=== PATIENT | female | born 1960 | race Caucasian/White ===

== ENCOUNTER 2017-11-06 10:26 | Emergency (ER) | payer OTHER ==
[2017-11-06] MEDS ORDERED: Albuterol 2.5 MG/3 ML NEB.SOL* (0.083%) INH ONE (12:51)
[2017-11-06] MEDS ORDERED: Ipratropium 0.5MG/2.5ML NEB* 0.5 MG/2.5 ML NEB.SOLN INH ONE (12:51)
--- NOTE | 2017-11-06 12:57 | UC ---
Respiratory Complaint HPI - HPI Summary HPI Summary: 57 yo female with 6 day hx of f/c, cough, wheezing, myalgias and malaise no n/v/d no nasal symptoms hx asthma/bronchitis and pneumonia - History of Current Complaint Chief Complaint: UCRespiratory Stated Complaint: COUGH,WHEEZING 6 DAYS Time Seen by Provider: 11/06/17 12:43 Hx Obtained From: Patient Hx Last Menstrual Period: 2011 Onset/Duration: Gradual Onset, Lasting Days Timing: Constant Severity Initially: Moderate Severity Currently: Moderate Pain Intensity: 4 Pain Scale Used: 0-10 Numeric Character: Cough: Productive Aggravating Factors: Nothing Alleviating Factors: Bronchodilator Associated Signs And Symptoms: Positive: Dyspnea, Fever, Chills, Wheezing - Allergies/Home Medications Allergies/Adverse Reactions: Allergies Allergy/AdvReac Type Severity Reaction Status Date / Time MS Doxycycline [Doxycycline] Allergy Intermediate rash, Verified 03/12/15 11:12 vomiting MS Phenazopyridine Allergy Intermediate GI Upset Verified 03/12/15 11:12 [From Pyridium] MS Sulfamethoxazole Allergy Intermediate kwok Verified 03/12/15 11:12 w/Trimethoprim inside of [From Bactrim] mouth MS Tetracycline Allergy Intermediate rash, Verified 03/12/15 11:12 [Tetracycline] vomiting MS Nitrofurantoin Allergy Unknown Unknown Verified 03/12/15 11:12 [From Macrobid] Reaction Details MS Amoxicillin Allergy Diarrhea Verified 03/12/15 11:13 [From Augmentin] MS Clavulanic Acid Allergy Diarrhea Verified 03/12/15 11:13 [From Augmentin] Home Medications: Home Medications Letrozole 11/06/17 [History] PMH/Surg Hx/FS Hx/Imm Hx Previously Healthy: Yes Endocrine History: Hypothyroidism Respiratory History: Asthma, Bronchitis, Pneumonia Psychological History: Depression - Surgical History Surgical History: Yes Surgery Procedure, Year, and Place: lumpectomy- 10 lymph nodes also removed- 2011. bowel resection - Family History Known Family History: Positive: Hypertension - Social History Alcohol Use: Rare Substance Use Type: None Smoking Status (MU): Never Smoked Tobacco - Immunization History Most Recent Influenza Vaccination: Fall 2013 Review of Systems Constitutional: Fever, Chills, Fatigue Skin: Negative Eyes: Negative ENT: Negative Respiratory: Cough Cardiovascular: Chest Pain Gastrointestinal: Negative Genitourinary: Negative Motor: Negative Neurovascular: Negative Musculoskeletal: Negative Neurological: Negative Psychological: Negative Is Patient Immunocompromised?: No All Other Systems Reviewed And Are Negative: Yes Physical Exam Triage Information Reviewed: Yes Appearance: Well-Appearing, No Pain Distress, Well-Nourished Vital Signs: Initial Vital Signs Temp 99.2 F 11/06/17 10:43 Pulse 79 11/06/17 10:43 Resp 18 11/06/17 10:43 BP 115/87 11/06/17 10:43 Pulse Ox 97 11/06/17 10:43 Vital Signs Reviewed: Yes Eyes: Positive: Conjunctiva Clear ENT: Positive: Hearing grossly normal, Pharynx normal, Uvula midline. Negative : Nasal congestion, Nasal drainage, Trismus, Muffled voice, Hoarse voice Neck: Positive: Supple, Nontender, No Lymphadenopathy Respiratory: Positive: No respiratory distress, No accessory muscle use, Wheezing Cardiovascular: Positive: RRR, No Murmur Musculoskeletal: Positive: ROM Intact, No Edema Neurological: Positive: Alert Skin Exam: Normal UC Diagnostic Evaluation - Laboratory O2 Sat by Pulse Oximetry: 97 - cora/not hypoxic - Radiology Xray Interpretation: Positive (See Comments) - left lingular infiltrate Radiology Interpretation Completed By: Radiologist Re-Evaluation - Re-Evaluation First Eval Re-Evaluation Time: 13:20 Change: Improved - lungs clear/subjectively improved/no CP Respiratory Course/Dx - Course Course Of Treatment: advised of radiologist recommendation to have chest re xrayed to assure resolution - Differential Dx/Diagnosis Provider Diagnoses: pneumonia. bronchospasm Discharge - Discharge Plan Condition: Stable Disposition: HOME Prescriptions: Albuterol 2.5MG/3ML (0.083%)* [Ventolin 2.5 MG/3 ML NEB.QUINCY*] 2.5 mg INH QID PRN #1 neb.quincy PRN Reason: Wheezing Levofloxacin TAB* [Levaquin TAB*] 500 mg PO DAILY #7 tab predniSONE [Deltasone] 40 mg PO DAILY #10 tab Patient Education Materials: Bronchospasm (ED), Pneumonia (ED) Forms: *Work Release Referrals: Dinorah Gustafson MD [Primary Care Provider] - 2 Weeks (Recheck in 2-3 weeks. The radiologist has suggested re xraying you to make sure this has resolved after treatment) Additional Instructions: rest fluids neb or puffer upto 4 x day as needed for wheezing recheck with your MD early next week if not markedly improved
--- NOTE | 2017-11-06 13:16 | RAD ---
HISTORY: Cough, fever, wheezing COMPARISONS: None VIEWS: 4: Frontal dual-energy and lateral views of the chest. FINDINGS: CARDIOMEDIASTINAL SILHOUETTE: The cardiomediastinal silhouette is normal. NONA: The nona are normal. PLEURA: The costophrenic angles are sharp. No pleural abnormalities are noted. LUNG PARENCHYMA: There is patchy alveolar opacification of the lingula. ABDOMEN: The upper abdomen is clear. There is no subphrenic gas. BONES AND SOFT TISSUES: No bone or soft tissue abnormalities are noted. The patient is status post bilateral breast augmentation. OTHER: None. IMPRESSION: PATCHY ATELECTASIS VERSUS CONSOLIDATION OF THE LINGULA. RECOMMEND FOLLOW-UP UNTIL RESOLUTION TO EXCLUDE UNDERLYING PULMONARY PARENCHYMAL PATHOLOGY.
[2017-11-06 13:37] VITALS: BP 120/72
== END 2017-11-06 13:37 | disposition home or self-care (01) ==
LOC: UCCORT 10:26
DX: J18.9 Pneumonia, unspecified organism (principal); J98.01 Acute bronchospasm
CPT/HCPCS: 71046; 99212; G0463; J7644

== ENCOUNTER 2018-01-09 16:37 | Emergency (ER) | payer OTHER ==
[2018-01-09 18:18] VITALS: BP 144/101
--- NOTE | 2018-01-09 18:53 | UC ---
UC General HPI - HPI Summary HPI Summary: pt is c/o pressure and burning in her vaginal area for 2 days. no frequency, urgency or burning with urination. no fever or vaginal d/c. no risk / concern for std. is on an estrogen alistair due to breast CA. she has tried otc lubricants with no relief. - History of Current Complaint Chief Complaint: UCGU Stated Complaint: URINARY Time Seen by Provider: 01/09/18 18:08 Hx Obtained From: Patient Hx Last Menstrual Period: 2011 Timing: Constant Pain Intensity: 6 Aggravating: nothing Alleviating: nothing Associated Signs & Symptoms: Negative: Abdominal Pain, Dysuria, Fever - Allergy/Home Medications Allergies/Adverse Reactions: Allergies Allergy/AdvReac Type Severity Reaction Status Date / Time amoxicillin [From Augmentin] Allergy Diarrhea Verified 01/09/18 18:10 clavulanic acid Allergy Diarrhea Verified 01/09/18 18:10 [From Augmentin] doxycycline Allergy Rash, Verified 01/09/18 18:14 vomiting nitrofurantoin Allergy Rash Verified 01/09/18 18:24 nortriptyline Allergy Palpitation Verified 01/09/18 18:24 s phenazopyridine Allergy GI Upset Verified 01/09/18 18:08 [From Pyridium] sulfamethoxazole Allergy See Comment Verified 01/09/18 18:24 [From Bactrim] tetracycline Allergy Rash,vomiti Verified 01/09/18 18:14 ng trimethoprim [From Bactrim] Allergy See Comment Verified 01/09/18 18:24 Home Medications: Home Medications Fluticasone-Salmeterol 250-50* [Advair Diskus 250-50*] 1 puff INH BID 01/09/18 [ History Confirmed 01/09/18] Omeprazole/Sodium Bicarbonate [Omeprazole-Bicarb 40-1,100 Cap] 1 each PO DAILY 01/09/18 [History Confirmed 01/09/18] Trazodone HCl 50 mg PO DAILY 01/09/18 [History Confirmed 01/09/18] PMH/Surg Hx/FS Hx/Imm Hx - Additional Past Medical History Additional PMH: breast ca GI/ History: Gastroesophageal Reflux Psychological History: Depression - Surgical History Surgical History: Yes Surgery Procedure, Year, and Place: lumpectomy- 10 lymph nodes also removed- 2011. bowel resection - Family History Known Family History: Positive: Hypertension - Social History Alcohol Use: Rare Substance Use Type: None Smoking Status (MU): Never Smoked Tobacco - Immunization History Most Recent Influenza Vaccination: Fall 2013 Vaccination Up to Date: Yes Review of Systems Constitutional: Negative Skin: Negative Eyes: Negative ENT: Negative Respiratory: Negative Cardiovascular: Negative Gastrointestinal: Negative Genitourinary: Other - burning and pressure in vaginal area Motor: Negative Neurovascular: Negative Musculoskeletal: Negative Neurological: Negative Psychological: Negative Is Patient Immunocompromised?: No All Other Systems Reviewed And Are Negative: Yes Physical Exam Triage Information Reviewed: Yes Appearance: Well-Appearing Vital Signs: Initial Vital Signs Temp 98.5 F 01/09/18 18:07 Pulse 75 01/09/18 18:07 Resp 16 01/09/18 18:07 BP 144/101 01/09/18 18:07 Pulse Ox 99 01/09/18 18:07 Vital Signs Reviewed: Yes Eyes: Positive: Conjunctiva Clear ENT: Positive: Pharynx normal, TMs normal. Negative: Nasal congestion, Nasal drainage Neck: Positive: Supple, Nontender, No Lymphadenopathy Respiratory: Positive: Lungs clear, Normal breath sounds Cardiovascular: Positive: RRR, No Murmur Abdomen Description: Positive: Nontender, No Organomegaly, Soft Bowel Sounds: Positive: Present Pelvic Exam: Positive: Other - External exam, mild drying of tissue. Vagina is pink without discharge. Cervix is without discharge or lesions. No cmt. No adnexal or uterine masses or tenderness. No cultures, pt declined Musculoskeletal: Positive: ROM Intact Neurological: Positive: Alert Psychological: Positive: Age Appropriate Behavior Skin Exam: Normal Course/Dx - Course Course Of Treatment: mild drying to vaginal area on exam but nothing else noted. will refer back to her pcp and gasoline engine assembler for close f/u. u/a trace leuks but otherwise is unremarkable. culture of urine is pending. pt avoids estrogen given her hx of CA and this was crossed off her d/c instructions. she has tried otc tx's thus agian needs gasoline engine assembler f/u. - Differential Dx - Multi-Symptom Provider Diagnoses: vaginal burning/pressure. probable vaginal atrophy. Discharge - Sign-Out/Discharge Documenting (check all that apply): Discharge - Discharge Plan Condition: Stable Disposition: HOME Patient Education Materials: Vaginal Atrophy (ED) Referrals: Dinorah Gustafson MD [Primary Care Provider] - As Soon As Possible Additional Instructions: FOLLOW UP DR ELADIO VUL[employer]ING PRESS [employer]PERATOR [place] SOON POSSIBLE. - Billing Disposition and Condition Condition: STABLE Disposition: HOME
== END 2018-01-09 19:22 | disposition home or self-care (01) ==
LOC: UCCORT 16:37
DX: R10.2 Pelvic and perineal pain (principal); Z88.3 Allergy status to other anti-infective agents; Z88.2 Allergy status to sulfonamides; Z88.8 Allergy status to other drugs, medicaments and biological substances
CPT/HCPCS: 81003; 87086; 99211; G0463

== ENCOUNTER → 2019-07-12 07:12 | Day surgery (SDC) | payer OTHER ==
[~2019-07-12 07:12] MED LIST: Buffered Lidocaine 1% SYRIN* 1 ML/SYRINGE INTRADERM ONE; Bupivacaine 0.5%* 50 ML MDV VIAL ONE; Dexamethasone IV* 4 MG/ML 1 ML (4 MG) IV SLOW PU ONE; Dexamethasone IV* 4 MG/ML 1 ML (4 MG) ONE; DiMENhydriNATE IV* 50 MG/ML VIAL IV PUSH PRN; DiMENhydriNATE IV* 50 MG/ML VIAL ONE; EPHEDrine (Pressors)* 50 MG/ML VIAL ONE; Famotidine IV* 10 MG/ML 2 ML (20 mg) IV ONE; Famotidine IV* 10 MG/ML 2 ML (20 mg) ONE; HYDROcodone/ACETAMIN 5-325 MG* 1 TAB ONE; HYDROcodone/ACETAMIN 5-325 MG* 1 TAB PO PRN; Ketorolac INJ* 30 MG/ML 1 ML VIAL IV PRN; Ketorolac INJ* 30 MG/ML 1 ML VIAL ONE; Lactated Ringers 1000 ML Bag* 1,000 ML IV SCH; Lidocaine 2% PF * 5 ML VIAL ONE; Midazolam* 1 MG/ML 5 ML VIAL (5 MG) ONE; Morphine 4 MG/ML VIAL (1 ml) 4 MG/ML VIAL ONE; Naloxone* 0.4 MG/ML 1 ML VIAL IV PRN; Ondansetron INJ* 2 MG/ML VIAL ONE; Phenylephrine 40 MCG/ML SYRINGE ONE; Propofol* 10 MG/ML 20 ML BTL ONE; ceFAZolin 2 GM PREMIX in ORs 2 GM/50 ML BAG ONE; fentaNYL* 50 MCG/ML 2 ML VIAL (100 MCG VIAL) ONE; oxyCODONE/Acetamin 5/325 MG* TAB ONE; oxyCODONE/Acetamin 5/325 MG* TAB PO PRN
[2019-07-12] MEDS: fentaNYL* 50 MCG/ML 2 ML VIAL (100 MCG VIAL) IV PRN ×4 (10:46→11:31)
[2019-07-12 12:31] VITALS: BP 120/73
--- NOTE | 2019-07-12 21:37 | OP ---
DATE OF OPERATION: 07/12/19 - SDS DATE OF : 62 SURGEON: Brendan Cueto MD ALLIGATOR HUNTER: Ge Dent PA-C PRE-OP DIAGNOSIS: Right ankle lateral instability. POST-OP DIAGNOSIS: Right ankle lateral instability. OPERATIVE PROCEDURE: Modified Brostrom repair, right ankle. DESCRIPTION OF PROCEDURE: The patient was taken to the operating room where a longitudinal incision was made over the distal fibula. We incised directly through the anterior capsule along the distal anterior and distal portion of the fibula. The capsule itself appeared reasonably robust and would be used for the repair rather than an allograft. Posterior to anterior drill holes were placed through the distal fibula, 2 more mid portion, 2 more distal and we passed #1 Vicryl sutures through these drill holes with a Farzad-Jose Eduardo suture used to capture the anterior capsule and bring it back firmly to the edge of the bone. The redundant periosteum was then brought back over the repair with 2 -0 Vicryl sutures. We irrigated the soft tissues closing subcu with 3-0 Monocryl and darrel for the skin and a compression dressing, plaster splint was applied. [id number]/[facility] #: [id number] MTDD
== END | disposition home or self-care (01) ==
LOC: OR 07:12
PROVIDERS: ATTEND Orthopaedic Surgery
DX: M25.371 Other instability, right ankle (principal); J45.909 Unspecified asthma, uncomplicated; K21.9 Gastro-esophageal reflux disease without esophagitis; F41.8 Other specified anxiety disorders; Z85.3 Personal history of malignant neoplasm of breast; Z68.31 Body mass index [BMI] 31.0-31.9, adult
CPT/HCPCS: A9270-GY; J0690; J1100; J1240; J1885; J2250; J2270; J2405; J2704; J3010; J3490